=== PATIENT | male | born 1950 | race Caucasian/White ===

== ENCOUNTER 2018-04-24 15:39 | Emergency (ER) | payer SELFPAY ==
[~2018-04-24] VITALS: Ht 180.3 cm; Wt 87.7 kg
[2018-04-24 15:41] VITALS: Ht 180.3 cm; Wt 87.7 kg
[2018-04-24] MEDS ORDERED: ROBAXIN500 MG PO (17:27)
[2018-04-24 17:54] VITALS: BP 136/78
== END 2018-04-24 17:55 | disposition home or self-care (01) ==
LOC: D.ER 15:39
DX: S80.01XA Contusion of right knee, initial encounter (principal); V49.9XXA Car occupant (driver) (passenger) injured in unspecified traffic accident, initial encounter; Y93.89 Activity, other specified; Y92.410 Unspecified street and highway as the place of occurrence of the external cause